=== PATIENT | female | born 1975 ===

== ENCOUNTER 2016-10-10 11:14 | Emergency (ER) | payer OTHER ==
--- NOTE | 2016-10-10 12:10 | RAD ---
RIGHT FINGER 3 VIEWS HISTORY: Third digit pain after jamming injury. COMPARISONS: None. TECHNIQUE: Frontal, lateral, and oblique views of the right third digit. ALIGNMENT: Grossly unremarkable. FRACTURE: No displaced acute fracture. SOFT TISSUES: Grossly unremarkable. RADIOOPAQUE FOREIGN BODY: None. IMPRESSION: No gross malalignment or displaced acute fracture noted.
== END 2016-10-10 13:22 | disposition home or self-care (01) ==
LOC: ED 11:14
DX: S60.031A Contusion of right middle finger without damage to nail, initial encounter (principal); W23.0XXA Caught, crushed, jammed, or pinched between moving objects, initial encounter; Y92.9 Unspecified place or not applicable